=== PATIENT | female | born 1990 | race African-American/Black ===

== ENCOUNTER 2016-10-08 08:00 | Inpatient (IN) | payer OTHER ==
[~2016-10-08] VITALS: Ht 154.9 cm; Wt 95.3 kg
[2016-10-08] MEDS ORDERED: ALU/MAG/SIM 30 ML UDC PO PRN (09:40)
[2016-10-08] MEDS ORDERED: CEFAZOLIN (LD/OB) 100 ML IV PRN (09:40)
[2016-10-08] MEDS ORDERED: FAMOTIDINE 20 MG INJ IV PRN (09:40)
[2016-10-08] MEDS ORDERED: LIDOCAINE 1% 30 ML PF INFILTRATE ONE (09:40)
[2016-10-08] MEDS ORDERED: LIDOCAINE 1% BUFFERED 1 ML SYR INTRADERM PRN (09:40)
[2016-10-08] MEDS ORDERED: ONDANSETRON 4 MG VIAL IV PRN (09:40)
[2016-10-08] MEDS ORDERED: OXYTOCIN 15 UNITS/250 ML NS 250 ML IV SCH (09:40)
[2016-10-08] MEDS ORDERED: TERBUTALINE 1 MG/ML VIAL SUBQ PRN (09:40)
[2016-10-08] MEDS ORDERED: METOCLOPRAMIDE 10 MG/2 ML VIAL IV PUSH PRN (09:40)
[2016-10-08] MEDS ORDERED: ACETAMINOPHEN 325 MG TAB PO PRN (09:40)
[2016-10-08] MEDS ORDERED: PENICILLIN G 5 MU in SODIUM CHLORIDE 0.9% 250 ML IV ONE (09:40)
[2016-10-08] MEDS ORDERED: FAMOTIDINE 20 MG TAB PO PRN (09:40)
[2016-10-08] MEDS ORDERED: PROMETHAZINE 25 MG/ML VIAL IV PRN (09:40)
[2016-10-08 09:46] VITALS: Ht 154.9 cm; Wt 95.3 kg
[2016-10-08] MEDS: LACT RINGERS 1,000 ML IV SCH (10:12)
[2016-10-08] MEDS: OXYTOCIN 15 UNITS/250 ML NS 250 ML IV SCH (10:13)
[2016-10-08] MEDS: PENICILLIN G 2.5 MU in SODIUM CHLORIDE 0.9% 100 ML IV SCH ×3 (14:33→22:23)
[2016-10-08] MEDS ORDERED: BUTORPHANOL 2 MG/ML VIAL IV ONE ×2 (19:35→23:25)
[2016-10-08] MEDS ORDERED: LIDOCAINE 1% 30 ML PF ONE (22:16)
[2016-10-09] VITALS (11 sets, daily range): BP systolic 108–129; RESP 18–20; TEMP 98.3–99.2
[2016-10-09] MEDS: LACT RINGERS 1,000 ML IV SCH ×2 (01:18→04:33)
[2016-10-09] MEDS ORDERED: ROPIV/FENT 0.2%-2MCG/ML 100 ML EPIDURAL ONE (02:02)
[2016-10-09] MEDS ORDERED: FENTANYL 100 MCG/2 ML AMP ONE (02:02)
[2016-10-09] MEDS ORDERED: FENTANYL 100 MCG/2 ML AMP EPIDURAL ONE (02:30)
[2016-10-09] MEDS ORDERED: ROPIV/FENT 0.2%-2MCG/ML 100 ML EPIDURAL SCH (02:30)
[2016-10-09] MEDS ORDERED: LACT RINGERS 500 ML IV ONE (02:30)
[2016-10-09] MEDS ORDERED: LACT RINGERS 500 ML IV PRN (02:30)
[2016-10-09] MEDS ORDERED: SODIUM CHLORIDE 0.9% 500 ML IV PRN (02:30)
[2016-10-09] MEDS: PENICILLIN G 2.5 MU in SODIUM CHLORIDE 0.9% 100 ML IV SCH ×5 (03:09→18:00)
[2016-10-09] MEDS: OXYTOCIN 15 UNITS/250 ML NS 250 ML IV SCH (06:35)
[2016-10-09] MEDS ORDERED: **ONLY ANESTEHSIA MAY ORDER OPIATES WHILE ON EPIDURAL XX SCH (08:00)
[2016-10-09] MEDS ORDERED: AMP/SULBACTAM 3 GM in SODIUM CHLORIDE 0.9% 100 ML IV ONE (10:00)
[2016-10-09] MEDS ORDERED: OXYTOCIN 15 UNITS/250 ML NS 250 ML IV SCH (10:10)
[2016-10-09] MEDS ORDERED: ASTRINGENT MED PADS 40'S TOPICAL PRN (10:10)
[2016-10-09] MEDS ORDERED: ZOLPIDEM 5 MG TAB PO PRN (10:10)
[2016-10-09] MEDS ORDERED: MAG HYDROX 30 ML UDC PO PRN (10:10)
[2016-10-09] MEDS ORDERED: DERMOPLAST SPRAY TOPICAL PRN (10:10)
[2016-10-09] MEDS ORDERED: TDaP 0.5 ML VIAL IM.VACC ONE (10:10)
[2016-10-09] MEDS ORDERED: MEASLES,MUMPS,RUBELLA VAC SUBQ.VACC ONE (10:10)
[2016-10-09] MEDS: METHYLERGONOVINE 0.2 MG TAB PO SCH ×2 (18:22→23:31)
[2016-10-09] MEDS: Ibuprofen 600 MG TAB PO PRN (19:59)
[2016-10-09] MEDS: OXYCODONE/APAP 5/325 TAB PO PRN ×2 (19:59→23:32)
[2016-10-10 01:26] VITALS: BP_SYST 106; RESP 20; TEMP 98.3
[2016-10-10 05:19] VITALS: BP_SYST 115; RESP 20; TEMP 97.7
[2016-10-10] MEDS: METHYLERGONOVINE 0.2 MG TAB PO SCH ×3 (06:20→17:12)
[2016-10-10] MEDS: Ibuprofen 600 MG TAB PO PRN ×4 (06:21→23:10)
[2016-10-10] MEDS: DOCUSATE SOD 100 MG CAP PO SCH (09:09)
[2016-10-10 10:03] VITALS: BP_SYST 108; RESP 18; TEMP 97.7
[2016-10-10 17:27] VITALS: BP_SYST 122; RESP 18; TEMP 98.1
[2016-10-11] MEDS: Ibuprofen 600 MG TAB PO PRN ×2 (05:50→11:33)
[2016-10-11 06:09] VITALS: BP_SYST 108; RESP 20; TEMP 98.2
[2016-10-11 09:30] VITALS: BP_SYST 105; TEMP 98
[2016-10-11 09:31] VITALS: RESP 16
[2016-10-11] MEDS: DOCUSATE SOD 100 MG CAP PO SCH (11:33)
[2016-10-11 13:14] VITALS: BP_SYST 116; TEMP 98.1
[2016-10-11 13:15] VITALS: RESP 18
[2016-10-11 13:40] VITALS: BP_SYST 116; RESP 18; TEMP 98.1
== END 2016-10-11 14:32 | disposition home or self-care (01) | DRG 775 ==
LOC: LD 08:09 → OB 10-09 13:15
PROVIDERS: ADMIT Obstetrics & Gynecology; ATTEND Obstetrics & Gynecology
PROC: 10E0XZZ Delivery of Products of Conception, External Approach (ICD-10-PCS; principal; 2016-10-09)
DX: O80 Encounter for full-term uncomplicated delivery (principal); Z37.0 Single live birth; Z3A.41 41 weeks gestation of pregnancy
CPT/HCPCS: 85014; 85018; 85025